=== PATIENT | male | born 1985 | race Caucasian/White ===

== ENCOUNTER 2017-12-08 12:18 | Emergency (ER) | payer OTHER ==
--- NOTE | 2017-12-08 12:36 | PDOC ---
Attending Attestation - Resident Resident Name: Son Barahona - ED Attending Attestation I have performed the following: I have examined & evaluated the patient, The case was reviewed & discussed with the resident, I agree w/resident's findings & plan, Exceptions are as noted - HPI HPI: 32 yo M presents with skin lesion to the R groin for past 1 month. He is traveling today and mom brought him to ED out of concern that he should have it examined before he leaves for [place]. No fever, no drainage at present, although it did bleed previously. Main concern is that there is a small hole in the skin , has not closed yet. He has been putting toilet paper on it to keep it dry. - Physicial Exam PE: GENERAL: Awake, alert, and fully oriented, in no acute distress HEAD: No signs of trauma EYES: PERRLA, EOMI, sclera anicteric, conjunctiva clear ENT: Auricles normal inspection, hearing grossly normal, nares patent, oropharynx clear without exudates. Moist mucosa NECK: Normal ROM, supple, no lymphadenopathy, JVD, or masses NEUROLOGICAL: Cranial nerves II through XII grossly intact. Normal speech, normal gait SKIN: Warm, Dry, normal turgor. +Small area of hyperpigmentation in groin skin fold on R, with small open lesion. No active drainage, no erythema, no bleeding , no induration. - Medical Decision Making Small area of chronic skin irritation based on hyperpigmentation- likely there is a component of yeast based on the location. There are no signs of cellulitis at present. Instructed him how to are for the wound using bacitracin and gauze. Stable for DC home.
[2017-12-08 12:40] VITALS: BP 130/90; PULSE 95; TEMP 98.3; BMI 36.3
--- NOTE | 2017-12-08 12:41 | PDOC ---
History of Present Illness - General Chief Complaint: Redness To Affected Area Stated Complaint: SKIN IRRITATION RIGHT ABDOMEN Time Seen by Provider: 12/08/17 12:26 History Source: Patient Exam Limitations: No Limitations - History of Present Illness Initial Comments: 12/08/17 12:35 Patient is a 32M with no significant medical history here today complaining of irritation to his skin under his belt line on the right side. Denies fevers, chills, nausea, vomiting. He's coming in today because he leaves for [place] in 4 days. Patient states that there was a hard lump in the area, but that broke and has had a small amount of discharge from the area the past few days. Denies abdominal pain. Past History - Past Medical History Allergies/Adverse Reactions: Allergies Allergy/AdvReac Type Severity Reaction Status Date / Time No Known Allergies Allergy Verified 12/08/17 12:25 Home Medications: Ambulatory Orders NK [No Known Home Medication] 12/08/17 Anemia: No Asthma: No Cancer: No Cardiac Disorders: Yes (Pericarditis (2012)) CVA: No COPD: No CHF: No Dementia: No Diabetes: No GI Disorders: No Disorders: No HTN: No Hypercholesterolemia: No Liver Disease: No Seizures: No Thyroid Disease: No - Surgical History Abdominal Surgery: No Appendectomy: No Cardiac Surgery: No Cholecystectomy: No Lung Surgery: No Neurologic Surgery: No Orthopedic Surgery: No - Suicide/Smoking/Psychosocial Hx Smoking History: Former smoker Have you smoked in the past 12 months: Yes If you are a former smoker, when did you quit?: 10/2014 Hx Alcohol Use: Yes (1/week) Drug/Substance Use Hx: Yes Substance Use Type: Marijuana Hx Substance Use Treatment: No Review of Systems - Review of Systems Able to Perform ROS?: Yes Comments:: 12/08/17 12:37 GENERAL/CONSTITUTIONAL: No fever or chills. No weakness. HEAD, EYES, EARS, NOSE AND THROAT: No change in vision. No sore throat. CARDIOVASCULAR: No chest pain or shortness of breath RESPIRATORY: No cough, wheezing, or hemoptysis. GASTROINTESTINAL: No nausea, vomiting, diarrhea or constipation. GENITOURINARY: No dysuria, frequency, or change in urination. MUSCULOSKELETAL: No joint or muscle swelling or pain. No neck or back pain. SKIN: +rash NEUROLOGIC: No headache, vertigo, loss of consciousness, or change in strength/ sensation. ENDOCRINE: No increased thirst. No abnormal weight change HEMATOLOGIC/LYMPHATIC: No anemia, easy bleeding, or history of blood clots. ALLERGIC/IMMUNOLOGIC: No hives or skin allergy. *Physical Exam - Physical Exam Comments: 12/08/17 12:37 GENERAL: Awake, alert, and fully oriented, in no acute distress HEAD: No signs of trauma, normocephalic, atraumatic EYES: PERRLA, EOMI, sclera anicteric, conjunctiva clear ENT: Auricles normal inspection, hearing grossly normal, nares patent, oropharynx clear without exudates. Moist mucosa NECK: Normal ROM, supple, no lymphadenopathy, JVD, or masses LUNGS: No distress, speaks full sentences, clear to auscultation bilaterally HEART: Regular rate and rhythm, normal S1 and S2, no murmurs, rubs or gallops, peripheral pulses normal and equal bilaterally. ABDOMEN: Soft, nontender, normoactive bowel sounds. No guarding, no rebound. No masses EXTREMITIES: Normal inspection, Normal range of motion, no edema. No clubbing or cyanosis. NEUROLOGICAL: Cranial nerves II through XII grossly intact. Normal speech, normal gait, no focal sensorimotor deficits SKIN: Warm, Dry, normal turgor, 3cm linear abrasion with 2mm opening along inguinal line. No abscesses appreciated Medical Decision Making - Medical Decision Making 12/08/17 12:38 Patient is 32M here today with ingrown hair, resolving. Vital signs normal and stable. Will discharge with instructions to use bacitracin. No signs of fungual infection. *DC/Admit/Observation/Transfer Diagnosis at time of Disposition: Ingrown hair - Discharge Dispostion Disposition: HOME Condition at time of disposition: Good Decision to Admit order: No - Referrals Referrals: Haydee Page MD [Primary Care Provider] - - Patient Instructions Additional Instructions: Please return if you have any new, worsening or concerning symptoms. Please follow up with your primary care doctor, a referral has been provided for you. Please use bacitracin around the area as needed. - Post Discharge Activity
== END 2017-12-08 13:02 | disposition home or self-care (01) ==
LOC: FER 12:18
DX: L73.1 Pseudofolliculitis barbae (principal); Z87.891 Personal history of nicotine dependence
CPT/HCPCS: 99281-25